=== PATIENT | female | born 1965 | race Caucasian/White ===

== ENCOUNTER 2016-11-10 07:40 | Day surgery (SDC) | payer BC ==
[2016-11-06 12:03] LABS: Basophils # (auto) 0.1 uL; Basophils % (auto) 1.2 % (0.0-2.0); Eosinophils # (auto) 0.1 uL; Eosinophils % (auto) 1.1 % (0.0-7.0); Hematocrit 42.5 % (36.0-46.0); Lymphocytes # (auto) 3.3 uL; Lymphocytes % (auto) 43.8 % (10.0-50.0); Mean Corpuscular Hemoglobin 30.3 pg (28.0-32.0); Mean Corpuscular Volume 91.8 fL (80.0-100.0); Mean Platelet Volume 9.8 fL (7.4-10.4); Monocytes # (auto) 0.7 uL; Monocytes % (auto) 9.4 % (0.0-12.0); Neutrophils # (auto) 3.3 uL; Neutrophils % (auto) 44.5 % (37.0-80.0); Platelet Count (auto) 217 10^3/uL (140-450); Red Cell Distribution Width 13.3 % (11.6-16.0); White Blood Cell 7.5 10^3/uL (4.4-10.8)
[2016-11-06 12:40] LABS: Urine Bilirubin Negative (Negative); Urine Blood Negative /uL (Negative); Urine Color Yellow (Yellow); Urine Glucose Normal (Normal); Urine Ketone Negative (Negative); Urine Nitrite Negative (Negative); Urine Urobilinogen Normal (Negative)
[2016-11-06 13:35] LABS: Albumin 3.8 g/dL (3.4-5.0); BUN/Creatinine Ratio 14.5; Bilirubin, Total 0.2 mg/dL (0.2-1.0); Calcium 9.1 mg/dL (8.5-10.1); Total Protein 7.4 g/dL (6.4-8.2)
[2016-11-06 13:46] LABS: INR 0.95 (0.9-1.15); Partial Thromboplastin Time 25.2 sec (22.64-33.71); Prothrombin Time 10.3 sec (9.37-12.3)
[~2016-11-10] VITALS: Ht 170.2 cm; Wt 57.2 kg
[2016-11-10 07:45] VITALS: BP 111/71
[2016-11-10] MEDS ORDERED: MIDAZOLAM HCL 1MG/1ML-2 ML VIAL ONE (10:14)
[2016-11-10] MEDS ORDERED: PROPOFOL 10 MG/ML 20 ML IV ONE (10:14)
[2016-11-10] MEDS ORDERED: SODIUM CHLORIDE LOCK 20 ML ONE (10:14)
[2016-11-10] MEDS ORDERED: fentaNYL CITRATE 100 MCG/2 ML VL ONE (10:14)
[2016-11-10] MEDS ORDERED: HYDROmorphone HCL 2 MG/ML VL IV PRN (10:15)
[2016-11-10] MEDS ORDERED: METOCLOPRAMIDE HCL 5MG/ml INJ 2ml VIAL IV ONE (10:15)
[2016-11-10] MEDS ORDERED: KETOROLAC TROMETH 30 MG/ML 1ML VIAL IV ONE (10:15)
== END 2016-11-10 11:51 | disposition home or self-care (01) ==
LOC: EDUNIT# 07:40 → GI 07:40
PROVIDERS: ATTEND Internal Medicine Gastroenterology
DX: Z12.11 Encounter for screening for malignant neoplasm of colon (principal); K64.8 Other hemorrhoids; K29.50 Unspecified chronic gastritis without bleeding; J44.9 Chronic obstructive pulmonary disease, unspecified; J45.909 Unspecified asthma, uncomplicated; Z90.710 Acquired absence of both cervix and uterus; F17.200 Nicotine dependence, unspecified, uncomplicated
CPT/HCPCS: 36415; 43239; 45378; 80053; 81003; 85025; 85610; 85730; 88305; 88342; J2250; J2704; J3010

== ENCOUNTER 2016-11-14 19:58 | Emergency (ER) | payer BC, OTHER ==
[~2016-11-14] VITALS: Ht 170.2 cm; Wt 55.8 kg
[2016-11-14] MEDS ORDERED: IOHEXOL 300 MG/ML 100ML BOTTLE IJ ONE (21:14)
[2016-11-14] MEDS ORDERED: ONDANSETRON HCL 4 MG/2 ML VIAL IV ONE (21:15)
[2016-11-14] MEDS ORDERED: MORPHINE SULFATE 4 MG/ML SYRG IV ONE (21:15)
[2016-11-14] MEDS ORDERED: SODIUM CHLORIDE 0.9% 1,000 ML IV ONE (21:15)
[2016-11-14 21:51] LABS: Albumin 3.5 g/dL (3.4-5.0); BUN/Creatinine Ratio 10.3; Basophils # (auto) 0.1 uL; Basophils % (auto) 0.7 % (0.0-2.0); Calcium 8.8 mg/dL (8.5-10.1); Eosinophils # (auto) 0.2 uL; Eosinophils % (auto) 2.1 % (0.0-7.0); Hematocrit 38.9 % (36.0-46.0); Lymphocytes # (auto) 3.4 uL; Lymphocytes % (auto) 40.7 % (10.0-50.0); Magnesium 2.2 mg/dL (1.6-2.6); Mean Corpuscular Hemoglobin 30.6 pg (28.0-32.0); Mean Corpuscular Hgb Conc. 33.3 g/dL (32.0-36.0); Mean Corpuscular Volume 91.9 fL (80.0-100.0); Mean Platelet Volume 10.9 fL (7.4-10.4); Monocytes # (auto) 0.7 uL; Monocytes % (auto) 8.4 % (0.0-12.0); Neutrophils % (auto) 48.1 % (37.0-80.0); Platelet Count (auto) 257 10^3/uL (140-450); Potassium 3.9 mmol/L (3.5-5.1); Red Cell Distribution Width 13.4 % (11.6-16.0); SUSPECT VIEW TRANSMISSION; White Blood Cell 8.3 10^3/uL (4.4-10.8)
[2016-11-14 21:53] LABS: Bilirubin, Total 0.2 mg/dL (0.2-1.0); Total Protein 7.3 g/dL (6.4-8.2)
[2016-11-14 21:57] LABS: Urine Bilirubin Negative (Negative); Urine Blood Negative /uL (Negative); Urine Color Yellow (Yellow); Urine Glucose Normal (Normal); Urine Ketone Negative (Negative); Urine Nitrite Negative (Negative); Urine RBC <1 /hpf (0 - 4); Urine Squamous Epithelial Cell FEW /hpf (<5); Urine Urobilinogen Normal (Negative); Urine pH 6.5 (5.0-8.0)
[2016-11-14] MEDS ORDERED: HYDROmorphone HCL 2 MG/ML VL IV ONE (22:30)
[2016-11-14] MEDS ORDERED: cefTRIAXone 1GM/50ML D5W 50 ML IV ONE (23:30)
[2016-11-15 00:39] VITALS: BP 120/71
== END 2016-11-15 00:54 | disposition home or self-care (01) ==
LOC: ER 20:00
DX: R10.32 Left lower quadrant pain (principal); R11.2 Nausea with vomiting, unspecified; R19.7 Diarrhea, unspecified; E78.5 Hyperlipidemia, unspecified; Z88.1 Allergy status to other antibiotic agents; Z90.710 Acquired absence of both cervix and uterus
CPT/HCPCS: 36415; 74177; 80053; 81001; 82150; 83690; 83735; 85025; 96361; 96365; 96375; 99285; J0696; J2270; J2405; Q9967

== ENCOUNTER → 2016-12-30 | Outpatient (CLI) | payer BC | END | disposition home or self-care (01) | LOC: LAB 13:55 | PROVIDERS: ATTEND Internal Medicine Cardiovascular Disease | DX: Z01.812 Encounter for preprocedural laboratory examination (principal) | CPT/HCPCS: 36415; 82565; 84520 ==

== ENCOUNTER → 2017-01-02 | Outpatient (CLI) | payer BC ==
[~2017-01-02] MED LIST: IOHEXOL 350 MG/ML 100ML IJ ONE; METOPROLOL TARTRATE 1MG/1ML-5ML VIAL IV ONE; NITROGLYCERIN 0.4 MG SL TAB SL ONE
== END | disposition home or self-care (01) ==
LOC: XYW 13:01
PROVIDERS: ATTEND Internal Medicine Cardiovascular Disease
DX: I20.9 Angina pectoris, unspecified (principal)
CPT/HCPCS: 75571; 75574

== ENCOUNTER → 2017-04-27 | Outpatient (CLI) | payer BC ==
[2017-04-27 08:33] LABS: Basophils # (auto) 0 uL; Basophils % (auto) 0.6 % (0.0-2.0); Eosinophils # (auto) 0.1 uL; Eosinophils % (auto) 1.5 % (0.0-7.0); Hematocrit 42.5 % (36.0-46.0); Hemoglobin 14.4 g/dL (12.2-16.2); Lymphocytes # (auto) 2.3 uL; Lymphocytes % (auto) 27.4 % (10.0-50.0); Mean Corpuscular Hemoglobin 31.7 pg (28.0-32.0); Mean Corpuscular Hgb Conc. 33.9 g/dL (32.0-36.0); Mean Corpuscular Volume 93.7 fL (80.0-100.0); Monocytes # (auto) 0.6 uL; Monocytes % (auto) 7.4 % (0.0-12.0); Neutrophils # (auto) 5.3 uL; Neutrophils % (auto) 63.1 % (37.0-80.0); Nucleated Red Blood Cells % 0.1 %; Platelet Count (auto) 251 10^3/uL (140-450); Red Blood Cells 4.54 10^6/uL (4.0-5.20); Red Cell Distribution Width 13.9 % (11.8-14.3); White Blood Cell 8.4 10^3/uL (4.4-10.8)
[2017-04-27 08:50] LABS: Urine Bacteria NONE SEEN /hpf (None Seen); Urine Blood Negative /uL (Negative); Urine Mucus FEW (None Seen); Urine Specific Gravity 1.023 (1.001-1.035); Urine WBC <1 /hpf (0 - 5)
[2017-04-27 09:02] LABS: Albumin 3.9 g/dL (3.4-5.0); BUN/Creatinine Ratio 17.9; Bilirubin, Total 0.3 mg/dL (0.2-1.0); Calcium 9.4 mg/dL (8.5-10.1); Magnesium 2.3 mg/dL (1.6-2.6); Phosphorus 3.2 mg/dL (2.5-4.90); Total Protein 7.7 g/dL (6.4-8.2)
[2017-04-27 11:51] LABS: Follicle Stimulating Hormone 106.12 IU/L (SEE BELOW); T3 Total 1.2 ng/mL (0.60-1.81)
[2017-04-27 11:52] LABS: Folate (Folic Acid) 19.52 ng/mL (5.38-24)
[2017-04-28 06:07] LABS: RPR Non Reactive (Non Reactive)
== END | disposition home or self-care (01) ==
LOC: LAB 07:48
PROVIDERS: ATTEND Internal Medicine
DX: Z11.59 Encounter for screening for other viral diseases (principal); Z79.899 Other long term (current) drug therapy
CPT/HCPCS: 36415; 80053; 80061; 81001; 82043; 82150; 82306; 82607; 82670; 82746; 83001; 83002; 83036; 83615; 83735; 84100; 84443; 84480; 84550; 85025; 86225; 86235; 86592; 86677; 87086

== ENCOUNTER → 2017-05-04 | Outpatient (CLI) | payer BC | END | disposition home or self-care (01) | LOC: LAB 14:57 | DX: Z00.01 Encounter for general adult medical examination with abnormal findings (principal); R79.89 Other specified abnormal findings of blood chemistry | CPT/HCPCS: 82270 ==

== ENCOUNTER 2018-12-29 07:25 | Inpatient (IN) | payer BC ==
[2018-12-27 09:02] LABS: Basophils # (auto) 0.1 uL; Basophils % (auto) 0.7 % (0.0-2.0); Eosinophils # (auto) 0.1 uL; Eosinophils % (auto) 0.7 % (0.0-7.0); Hemoglobin 14.7 g/dL (12.2-16.2); Lymphocytes # (auto) 2.5 uL; Lymphocytes % (auto) 20.9 % (10.0-50.0); Mean Corpuscular Hemoglobin 30.8 pg (28.0-32.0); Mean Corpuscular Hgb Conc. 33.3 g/dL (32.0-36.0); Mean Corpuscular Volume 92.3 fL (80.0-100.0); Monocytes # (auto) 0.9 uL; Monocytes % (auto) 7.9 % (0.0-12.0); Neutrophils # (auto) 8.2 uL; Neutrophils % (auto) 69.8 % (37.0-80.0); Platelet Count (auto) 212 10^3/uL (140-450); Red Blood Cells 4.77 10^6/uL (4.0-5.20); Red Cell Distribution Width 13.5 % (11.8-14.3); White Blood Cell 11.8 10^3/uL (4.4-10.8)
[2018-12-27 09:03] LABS: Urine Bacteria NONE SEEN /hpf (None Seen); Urine Blood Negative /uL (Negative); Urine Specific Gravity 1.014 (1.001-1.035); Urine WBC <1 /hpf (0 - 5)
[2018-12-27 09:17] LABS: Albumin 3.9 g/dL (3.4-5.0); Calcium 9.4 mg/dL (8.5-10.1); INR < 0.93 (0.9-1.15); Partial Thromboplastin Time 24.1 sec (23.64-32.05); Potassium 3.9 mmol/L (3.5-5.1)
[2018-12-27 09:20] LABS: BUN/Creatinine Ratio 13.5; Bilirubin, Total 0.3 mg/dL (0.2-1.0); Total Protein 7.8 g/dL (6.4-8.2)
[~2018-12-29] VITALS: Ht 170.2 cm; Wt 67.5 kg
[~2018-12-29 07:25] MED LIST changes: -IOHEXOL 350 MG/ML 100ML IJ ONE; -METOPROLOL TARTRATE 1MG/1ML-5ML VIAL IV ONE; +MONT10TA23 PO; -NITROGLYCERIN 0.4 MG SL TAB SL ONE; +PANT40TA2 PO
[2018-12-29] MEDS ORDERED: ceFAZolin 1GM/50ML 50 ML IV ONE (07:53)
[2018-12-29] MEDS ORDERED: ROCURONIUM 10MG/ML 10ML VIAL IV ONE (08:47)
[2018-12-29] MEDS ORDERED: PROPOFOL 10 MG/ML 20 ML IV ONE (08:47)
[2018-12-29] MEDS ORDERED: fentaNYL CITRATE 100 MCG/2 ML VL ONE (08:47)
[2018-12-29] MEDS ORDERED: MIDAZOLAM HCL 1MG/1ML-2 ML VIAL ONE (08:47)
[2018-12-29] MEDS ORDERED: NEOSTIGMINE 1 MG/ML INJ (10mg/10ML VIAL) IV ONE (08:49)
[2018-12-29] MEDS ORDERED: DexAMETHasone SOD PHOS 10MG/1ML VIAL INJ IV ONE (08:49)
[2018-12-29] MEDS ORDERED: GLYCOPYRROLATE 0.2 MG/ML 1ML VIAL IV ONE (08:49)
[2018-12-29] MEDS ORDERED: ONDANSETRON HCL 4 MG/2 ML VIAL ONE (09:52)
[2018-12-29] MEDS ORDERED: ePHEDrine SULFATE 50 MG/ML AMP IV PRN (10:00)
[2018-12-29] MEDS ORDERED: ONDANSETRON HCL 4 MG/2 ML VIAL IV ONE (10:00)
[2018-12-29] MEDS ORDERED: hydrALAZINE HCL 20 MG/ML VL IV PRN (10:00)
[2018-12-29] MEDS ORDERED: HYDROmorphone HCL 2 MG/ML VL IV PRN (10:00)
[2018-12-29] MEDS ORDERED: PROMETHAZINE HCL 25 MG/ML 1ML IV PRN (10:12)
[2018-12-29] MEDS ORDERED: PROMETHAZINE HCL 25 MG/ML 1ML ONE (10:12)
[2018-12-29] MEDS: HYDROmorphone HCL 2 MG/ML VL IV PRN ×7 (10:22→22:05)
[2018-12-29] MEDS ORDERED: KETOROLAC TROMETH 30 MG/ML 1ML VIAL IV ONE (11:35)
[2018-12-29] MEDS ORDERED: KETOROLAC TROMETH 60MG/2ML VIAL ONE (11:52)
--- NOTE | 2018-12-29 12:50 | NUR ---
POST-OP ADMIT Received report from [employer], patient transferred to room S/P Laparoscopic Cholecystectomy performed by Dr. Woodard. Patient is alert and oriented, not in respiratory distress. 4/10 complained of abdominal pain at this time but feels more abdominal gas. Patient has been burping but no flatus yet. Encouraged early ambulation. Will continue to monitor.
[2018-12-29 13:00] VITALS: BP 111/50
[2018-12-29] MEDS ORDERED: HYDROcodone-ACET 5/325MG TAB PO PRN (14:15)
[2018-12-29] MEDS ORDERED: LORazepam 2MG/ML-1ML VIAL IV PRN (14:15)
[2018-12-29] MEDS: ONDANSETRON HCL 4 MG/2 ML VIAL IV PRN (14:44)
[2018-12-29] MEDS: SODIUM CHLORIDE 0.9% 1,000 ML IV SCH (14:48)
[2018-12-29 17:00] VITALS: BP 134/80
--- NOTE | 2018-12-29 17:30 | NUR ---
COMPLAINTS OF FEELING BLOATED AND UNABLE TO PASS OUT GAS/FLATUS THAT CAUSING SEVERE ABDOMINAL PAIN. PAGED BANK ANALYST HOSPITALIST AND RETURNED CALL. ORDERS RECEIVED FROM ROYAL MANN NP. WILL CONTINUE CARE.
[2018-12-29] MEDS: CALCIUM CARB 500 MG CHEW TAB PO PRN (17:40)
--- NOTE | 2018-12-29 18:15 | NUR ---
Paged ASHTYN He and returned call. Patient complained of severe abdominal pain with spasm. Dilaudid IV has been administered. Made Neri aware that Dr. Woodard called back and made aware of the patient's status. May apply warm compress per Neri CHAMORRO.
[2018-12-29] MEDS: KETOROLAC TROMETH 60MG/2ML VIAL IV PRN (18:28)
--- NOTE | 2018-12-29 18:30 | NUR ---
PATIENT IS ALREADY SCREAMING IN PAIN, TORADOL IV WAS JUST ADMINISTERED. ROYAL CHAMORRO PAGED AGAIN AND RETURNED CALL, ORDER RECEIVED FOR STAT CT ABDOMEN/PELVIS. CALLED RADIOLOGY FOR THIS. WILL CONTINUE CARE.
[2018-12-29] MEDS: ALBUTEROL SULF 2.5 MG/0.5ML(0.5%) NEB SOLN NEB SCH (18:36)
[2018-12-29] MEDS: IPRATROPIUM BROM 0.5 MG/2.5ML INH SOL NEB SCH (18:36)
--- NOTE | 2018-12-29 18:36 | NUR ---
Respiratory note: PT REFUSED SCHED MED NEB TX. PT STATED THAT SHE WAS IN TOO MUCH PAIN AND WAS WAITING FOR TECHS TO BRING HER TO CT. WILL CONTINUE TO MONITOR.
--- NOTE | 2018-12-29 19:38 | NUR ---
Hospitalist Norris speaking to patient CT negative, ordered lorazepam q6 0.5mg q6 prn
[2018-12-29 20:00] VITALS: BP 131/78
--- NOTE | 2018-12-29 20:02 | NUR ---
Spoke to Smiley on the phone updated on patient status, no additional orders received at this time
--- NOTE | 2018-12-29 20:06 | NUR ---
Pharmacy Spoke to pharmacy to verify order for lorazepam 0.5mg q6 prn ordered by hospitalist for immediate administration, pharmacy verified at this time
--- NOTE | 2018-12-29 20:10 | NUR ---
Opening Shift Note Assumed care of patient, awake and alert x4. No S/S of distress/SOB, patient denies pain at this time, c/o intermittent spasms at mid abdomen, not passing gas, will medicate as ordered. Dressings x3 to abdomen cdi. Instructed on POC and to call for assistance PRN, will continue to monitor for changes Q1hr and PRN.
[2018-12-29] MEDS: LORazepam 2MG/ML-1ML VIAL IV PRN (20:13)
[2018-12-29 21:50] VITALS: BP 131/78
[2018-12-29 22:00] VITALS: BP 131/78
--- NOTE | 2018-12-29 22:05 | NUR ---
Pain Management Pt medicated for abdominal pain occasional spasms, patient tolerating pain well but would like to medicate before pain becomes untolerable. Medicated as ordered, side effects explained, instructed to call prn. Will continue to monitor
[2018-12-29] MEDS: MONTELUKAST SODIUM 10 MG TAB PO SCH (22:09)
--- NOTE | 2018-12-30 | NUR ---
Rounds Patient awake and alert. Patient ambulating to restroom independently, disconnected from IV fluids at this time. No S/S of distress/SOB or pain. Will continue to monitor changes q1hr and PRN.
[2018-12-30] MEDS: SODIUM CHLORIDE 0.9% 1,000 ML IV SCH ×3 (00:01→21:29)
[2018-12-30] MEDS: CALCIUM CARB 500 MG CHEW TAB PO PRN (00:02)
[2018-12-30] MEDS: KETOROLAC TROMETH 60MG/2ML VIAL IV PRN ×2 (00:45→16:50)
[2018-12-30 00:53] VITALS: BP 131/78
[2018-12-30 04:55] VITALS: BP 120/70
--- NOTE | 2018-12-30 05:00 | NUR ---
FCO FCO drained total 50ml serosanguineous drainage for shift.
[2018-12-30 06:30] LABS: Basophils # (auto) 0 uL; Basophils % (auto) 0.2 % (0.0-2.0); Eosinophils # (auto) 0 uL; Eosinophils % (auto) 0.1 % (0.0-7.0); Hematocrit 39.2 % (36.0-46.0); Hemoglobin 13.2 g/dL (12.2-16.2); Lymphocytes # (auto) 2.6 uL; Lymphocytes % (auto) 20.3 % (10.0-50.0); Mean Corpuscular Hemoglobin 31.1 pg (28.0-32.0); Mean Corpuscular Hgb Conc. 33.6 g/dL (32.0-36.0); Mean Corpuscular Volume 92.7 fL (80.0-100.0); Monocytes # (auto) 1.3 uL; Neutrophils # (auto) 8.8 uL; Neutrophils % (auto) 69.4 % (37.0-80.0); Nucleated Red Blood Cells % 0.1 %; Platelet Count (auto) 181 10^3/uL (140-450); Red Blood Cells 4.23 10^6/uL (4.0-5.20); Red Cell Distribution Width 13.4 % (11.8-14.3); White Blood Cell 12.7 10^3/uL (4.4-10.8)
[2018-12-30] MEDS: ALBUTEROL SULF 2.5 MG/0.5ML(0.5%) NEB SOLN NEB SCH ×3 (06:41→18:27)
[2018-12-30] MEDS: IPRATROPIUM BROM 0.5 MG/2.5ML INH SOL NEB SCH ×3 (06:42→18:27)
[2018-12-30] MEDS: ONDANSETRON HCL 4 MG/2 ML VIAL IV PRN (06:43)
--- NOTE | 2018-12-30 06:45 | NUR ---
IV insertion IV access attempted x5, 2x by Daniel RN, 3x by primary RN, all unsuccesful attempts. No trauma to site. Patient tolerated well. CN Melecio informed, CN to attempt IV at earliest convenience NOTE:
[2018-12-30 06:49] LABS: Potassium 4.1 mmol/L (3.5-5.1)
[2018-12-30 06:58] LABS: Albumin 3.2 g/dL (3.4-5.0); BUN/Creatinine Ratio 21.7; Bilirubin, Total 0.5 mg/dL (0.2-1.0); Calcium 8.6 mg/dL (8.5-10.1); Total Protein 6.4 g/dL (6.4-8.2)
[2018-12-30 09:00] VITALS: BP 132/85
[2018-12-30] MEDS ORDERED: PANTOPRAZOLE 40 MG/10 ML VIAL INJ IV SCH (10:00)
[2018-12-30] MEDS ORDERED: LACTULOSE 20Gm/30ML SOLN PO ONE (10:00)
[2018-12-30 13:00] VITALS: BP 123/71
[2018-12-30] MEDS ORDERED: PANTOPRAZOLE 40 MG TAB PO ONE (16:45)
[2018-12-30 17:02] VITALS: BP 120/79
--- NOTE | 2018-12-30 19:25 | NUR ---
Opening Shift Note Assumed care of patient, awake and alert. No S/S of distress/SOB or pain. Instructed on POC and to call for assistance PRN, will continue to monitor for changes Q1hr and PRN. Patient ate dinner family brought in tolerated well, will advance diet
--- NOTE | 2018-12-30 19:36 | NUR ---
END OF SHIFT NOTE PATIENT AWAKE AND ALERT SITTING UP IN BED. NO S/S OF DISTRESS OR SOB NOTED. BED IN LOWEST LOCKED POSITION, CALL LIGHT WITHIN REACH. CARE ENDORSED TO NIRALI ROSAS.
[2018-12-30] MEDS: MONTELUKAST SODIUM 10 MG TAB PO SCH (21:30)
[2018-12-30] MEDS: LORazepam 2MG/ML-1ML VIAL IV PRN (21:31)
--- NOTE | 2018-12-30 21:40 | NUR ---
Rounds Patient awake and alert x4. No S/S of distress/SOB or pain. Patient complaining of mild headache, declines pain medication. Patient medicated for anxiety. Will continue to monitor changes q1hr and PRN.
[2018-12-30 22:19] VITALS: BP 118/62
[2018-12-31 05:24] VITALS: BP 117/74
--- NOTE | 2018-12-31 06:00 | NUR ---
Rounds Patient ambulating around nursing station. Patient awake and alert x4. No S/S of distress/SOB or pain. Will continue to monitor changes q1hr and PRN.
[2018-12-31] MEDS: IPRATROPIUM BROM 0.5 MG/2.5ML INH SOL NEB SCH ×2 (06:31→11:54)
[2018-12-31] MEDS: ALBUTEROL SULF 2.5 MG/0.5ML(0.5%) NEB SOLN NEB SCH ×2 (06:31→11:54)
--- NOTE | 2018-12-31 06:31 | NUR ---
RT NOTE: WENT TO PTS ROOM TO ADMINISTER BREATHING TX, PT STATED THAT SHE WAS NOT FEELING GOOD AND DID NOT WANT A TX AT THIS TIME. PT AWARE TO CALL IF HAVING ANY SOB. WILL CONTINUE TO MONITOR PT. HR 79, SPO2 95%, ON RA, RR 16, BS CLEAR. WILL CONTINUE TO MONITOR PT.
[2018-12-31 06:46] LABS: Basophils # (auto) 0.1 uL; Basophils % (auto) 0.6 % (0.0-2.0); Eosinophils # (auto) 0.2 uL; Eosinophils % (auto) 2.4 % (0.0-7.0); Hemoglobin 12.5 g/dL (12.2-16.2); Lymphocytes % (auto) 24.4 % (10.0-50.0); Mean Corpuscular Hemoglobin 31.9 pg (28.0-32.0); Mean Corpuscular Hgb Conc. 34.6 g/dL (32.0-36.0); Mean Corpuscular Volume 92.2 fL (80.0-100.0); Monocytes # (auto) 0.8 uL; Monocytes % (auto) 9.5 % (0.0-12.0); Neutrophils # (auto) 5.2 uL; Neutrophils % (auto) 63.1 % (37.0-80.0); Platelet Count (auto) 152 10^3/uL (140-450); Red Cell Distribution Width 13.6 % (11.8-14.3); White Blood Cell 8.2 10^3/uL (4.4-10.8)
[2018-12-31 06:54] LABS: Albumin 3.1 g/dL (3.4-5.0); BUN/Creatinine Ratio 12.9; Calcium 8.3 mg/dL (8.5-10.1); Potassium 3.7 mmol/L (3.5-5.1)
[2018-12-31 06:57] LABS: Bilirubin, Total 0.5 mg/dL (0.2-1.0); Total Protein 6.3 g/dL (6.4-8.2)
--- NOTE | 2018-12-31 07:30 | NUR ---
OPENING NOTE ASSUMED CARE OF PATIENT. ALERT AND ORIENTED. BED SET TO LOWEST POSITION/LOCKED, BEDSIDE RAILS UP X2, CALL LIGHT WITH IN REACH. INSTRUCTED PATIENT TO CALL FOR ASSISTANCE. DISCUSSED POC. WILL CONTINUE TO MONITOR Q 1HR AND PRN.
[2018-12-31] MEDS: KETOROLAC TROMETH 60MG/2ML VIAL IV PRN (08:23)
[2018-12-31 09:00] VITALS: BP 154/88
[2018-12-31] MEDS ORDERED: PANTOPRAZOLE 40 MG TAB PO SCH (10:00)
[2018-12-31 11:42] VITALS: BP 112/73
--- NOTE | 2018-12-31 11:54 | NUR ---
RT NOTE: WENT TO PTS ROOM TO ADMINISTER BREATHING TX, PT STATED THAT SHE WAS NOT FEELING GOOD AND DID NOT WANT A TX AT THIS TIME. PT AWARE TO CALL IF HAVING ANY SOB. WILL CONTINUE TO MONITOR PT. HR 82, SPO2 94% ON RA, RR 16, BS CLEAR. WILL CONTINUE TO MONITOR PT.
[2018-12-31 12:00] VITALS: BP 112/73
--- NOTE | 2018-12-31 12:09 | NUR ---
Discharge instructions and paperwork given as MD ordered. Patient is to follow-up with Dr. Pastrana on 01/06/19 at 10:30AM, [address] [place] [address]. . Patient is to follow-up with Dr. Woodard on 01/11/19 at 11:00AM. [address] [place] [address]. Ext [phone]. All questions and concerns addressed. Patient verbalized understanding. IV removed with catheter intact, pressure dressing applied.
--- NOTE | 2018-12-31 12:15 | NUR ---
Patient ambulated to vehicle with all personal belongings, accompanied by staff and family member. No distress noted at time of departure.
== END 2018-12-31 12:15 | disposition home or self-care (01) | DRG 418 ==
LOC: SUR 07:25 → EAST 07:26 → EEVIPCON 07:26
PROVIDERS: ADMIT Surgery; ATTEND Internal Medicine
PROC: 0FT44ZZ Resection of Gallbladder, Percutaneous Endoscopic Approach (ICD-10-PCS; principal; 2018-12-29 08:49)
DX: K82.8 Other specified diseases of gallbladder (principal); K80.10 Calculus of gallbladder with chronic cholecystitis without obstruction; J44.9 Chronic obstructive pulmonary disease, unspecified; F17.210 Nicotine dependence, cigarettes, uncomplicated
CPT/HCPCS: 36415; 74176; 80053; 81001; 85025; 85610; 85730; 86850; 86900; 86901; 94640; G0378; J0690; J1100; J1885; J2250; J2405; J2704